=== PATIENT | male | born 1990 | race Caucasian/White ===

== ENCOUNTER 2018-11-10 18:03 | Emergency (ER) | payer OTHER ==
[~2018-11-10] VITALS: Ht 172.7 cm; Wt 65.8 kg
--- NOTE | 2018-11-10 18:44 | NUR ---
patient [employer] in custody, c/o r elbow pain, per [employer] [facility] [place] wants the patient elbow to cast. On room air, ambulatory, breathing evenly and unlabored. Kept comfortable, will continue to monitor accordingly.
[2018-11-10] MEDS ORDERED: HYDROCODONE/APAP 5/325MG 1 EACH TABLET PO ONE (19:00)
[2018-11-10] MEDS ORDERED: HYDROCODONE/APAP 5/325MG 1 EACH TABLET ONE (19:27)
--- NOTE | 2018-11-10 19:44 | NUR ---
[facility] EMT AT BEDSIDE FOR SPLINT APPLICATION. +CMS NOTED.
--- NOTE | 2018-11-10 19:56 | NUR ---
PT OK TO DISCHARGE PER JAD CARRILLO. Patient discharged in custody of [employer] in stable condition. Written and verbal after care instructions given. Patient verbalizes understanding of instruction.Patient is awake and alert to self, day, and place. PT ambulatory with a steady gait
[2018-11-10 20:17] VITALS: BP 124/79
== END 2018-11-10 20:17 ==
LOC: ER 18:07
DX: S52.691A Other fracture of lower end of right ulna, initial encounter for closed fracture (principal); S42.491 Other displaced fracture of lower end of right humerus; J45.909 Unspecified asthma, uncomplicated; Z02.89 Encounter for other administrative examinations; Z91.19 Patient's noncompliance with other medical treatment and regimen; V00.131A Fall from skateboard, initial encounter; Y93.51 Activity, roller skating (inline) and skateboarding; Y92.89 Other specified places as the place of occurrence of the external cause; Y99.8 Other external cause status
CPT/HCPCS: 73080-TC; 73110